=== PATIENT | male | born 1990 | race American Indian/Alaskan Native ===

== ENCOUNTER 2019-07-28 02:14 | Emergency (ER) | payer SELFPAY ==
[2019-07-28 02:28] VITALS: BP 142/87
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
== END 2019-07-28 03:24 | disposition home or self-care (01) ==
LOC: ED 02:14
DX: S20.219A Contusion of unspecified front wall of thorax, initial encounter (principal); F17.200 Nicotine dependence, unspecified, uncomplicated; Z79.899 Other long term (current) drug therapy; V49.49XA Driver injured in collision with other motor vehicles in traffic accident, initial encounter; W22.11XA Striking against or struck by driver side automobile airbag, initial encounter; Y93.89 Activity, other specified; Y92.410 Unspecified street and highway as the place of occurrence of the external cause; Y99.8 Other external cause status

== ENCOUNTER 2020-07-27 21:28 | Emergency (ER) | payer SELFPAY | END 2020-07-27 22:00 | disposition left against medical advice (07) | LOC: ED 21:28 | DX: Z53.21 Procedure and treatment not carried out due to patient leaving prior to being seen by health care provider (principal) ==